=== PATIENT | male | born 1980 | race Caucasian/White ===

== ENCOUNTER 2017-08-29 23:03 | Emergency (ER) | payer OTHER ==
[~2017-08-29] VITALS: Ht 182.9 cm; Wt 133.4 kg
[2017-08-29 23:54] LABS: HEMATOCRIT 41.4 % (38.0-50.0); MCH 30.4 PG (29.0-34.0); MCHC 36.2 G/DL (30.0-36.0); MCV 83.8 FL (86-99); PLATELET COUNT 249 K/uL (156-360); RBC DIS.WIDTH-CV 13.2 % (11.8-14.6); RBC DIS.WIDTH-SD 39.7 % (39-53); RED BLOOD COUNT 4.94 M/uL (4.00-5.50)
[2017-08-30 00:06] LABS: CHLORIDE 103 mEq/L (99-109); POTASSIUM 3.1 mEq/L (3.7-5.4); SODIUM 141 mEq/L (136-147)
[2017-08-30 00:09] LABS: GLUCOSE 294 mg/dL (70-99); TOTAL PROTEIN 6.5 g/dL (6.4-8.3)
[2017-08-30 00:11] LABS: TOTAL BILIRUBIN 0.5 mg/dL (0.0-1.0)
[2017-08-30 00:12] LABS: ALKALINE PHOSPHATASE 98 IU/L (3-129); CREATININE 0.9 mg/dL (0.6-1.3)
[2017-08-30 00:13] LABS: UREA NITROGEN (BUN) 12 mg/dL (9-23)
[2017-08-30 00:14] LABS: AST (GOT) 61 IU/L (2-34)
[2017-08-30 00:15] LABS: ALT (GPT) 95 IU/L (3-49)
[2017-08-30 00:24] LABS: GFR ESTIMATE (CALCULATED) > 59 mL/min/ (58.99-99999)
[2017-08-30 02:40] LABS: LIPASE 26 U/L (1.0-51.0)
[2017-08-30 02:43] LABS: TROP-I INTERPRETATION NEGATIVE; TROPONIN-I < 0.01 ng/mL (0.0-0.30)
[2017-08-30 02:54] LABS: APPEARANCE CLEAR ((CLEAR)); BILIRUBIN NEGATIVE; BLOOD SMALL; COLOR YELLOW ((YELLOW)); GLUCOSE (STRIP) >=500; KETONES NEGATIVE; LEUKOCYTES NEGATIVE; NITRITE NEGATIVE; PROTEIN (STRIP) 30; SPECIFIC GRAVITY 1.028 (1.000-1.030)
[2017-08-30 02:57] LABS: BACTERIA RARE /HPF; EPITHELIAL CELLS NONE SEEN /HPF; MUCUS TRACE /LPF; UCUL ADDED? NO; WHITE BLOOD CELLS 0-5 /HPF (0-5)
[2017-08-30 03:32] LABS: TROP-I INTERPRETATION NEGATIVE; TROPONIN-I 0.01 ng/mL (0.0-0.30)
[2017-08-30] MEDS ORDERED: TYLENOL325 M2 PO (08:05)
[2017-08-30] MEDS ORDERED: PARAFON FORTE500 MG PO (08:05)
[2017-08-30] MEDS ORDERED: IBU400 MG PO (08:05)
[2017-08-30] MEDS ORDERED: GLUCOPHAGE500 MG PO (09:05)
[2017-08-30] MEDS ORDERED: LEVEMIR100 UNIT/2 SC (09:07)
[2017-08-30 10:22] LABS: HEMOGLOBIN A1c (GLYCOHEMOGLOB) 6.8 % (Below 5.7)
[2017-08-30 11:58] VITALS: BP 107/80
== END 2017-08-30 11:58 | disposition home or self-care (01) ==
LOC: EME 23:03
PROVIDERS: Emergency Medicine
DX: R10.31 Right lower quadrant pain (principal); R07.9 Chest pain, unspecified; E11.9 Type 2 diabetes mellitus without complications; K21.9 Gastro-esophageal reflux disease without esophagitis; E66.01 Morbid (severe) obesity due to excess calories; Z68.39 Body mass index [BMI] 39.0-39.9, adult; I10 Essential (primary) hypertension; Z90.49 Acquired absence of other specified parts of digestive tract; Z80.0 Family history of malignant neoplasm of digestive organs; Z82.49 Family history of ischemic heart disease and other diseases of the circulatory system; Z83.3 Family history of diabetes mellitus
CPT/HCPCS: 71275; 74177; 80053; 81003; 83036; 83605; 83690; 84484; 85027; 93005; 99281; 99285; J1200; J2405; J3010; J7030; J7040